=== PATIENT | male | born 1965 | race Caucasian/White ===

== ENCOUNTER 2017-12-11 07:11 | Day surgery (SDC) | payer OTHER ==
[2017-12-11] MEDS ORDERED: D5 LR 1000 ML 1,000 ML IV ONE (07:21)
[2017-12-11] MEDS ORDERED: DIPRIVAN VIAL 20 ML ONE (08:03)
[2017-12-11 09:43] VITALS: BP 120/90
== END 2017-12-11 09:27 | disposition home or self-care (01) ==
LOC: SURG1 07:11
PROVIDERS: ATTEND Internal Medicine Gastroenterology
PROC: 0DJD8ZZ Inspection of Lower Intestinal Tract, Via Natural or Artificial Opening Endoscopic (ICD-10-PCS; principal; 2017-12-11 07:30)
DX: K63.5 Polyp of colon (principal); K64.0 First degree hemorrhoids; Z80.0 Family history of malignant neoplasm of digestive organs; Z86.010 Personal history of colon polyps
CPT/HCPCS: A4217; J3490; J7120